=== PATIENT | male | born 1990 | race African-American/Black ===

== ENCOUNTER 2019-07-31 07:15 | Emergency (ER) | payer SELFPAY ==
[~2019-07-31] VITALS: Ht 182.9 cm; Wt 79.5 kg
[2019-07-31 07:22] VITALS: Ht 182.9 cm; Wt 79.5 kg
[2019-07-31 07:50] LABS: BASOPHILS 0.4 % (0-2); HEMOGLOBIN 14.7 g/dL (13.5-17.5); IMMATURE GRANULOCYTES 0.1 % (0-5); LYMPHOCYTES 42.2 % (15-50); MCHC 33.4 g/dL (31.0-37.0); MCV 92.8 fL (80.0-100.0); MEAN PLATELET VOLUME 9.2 fL (7.4-10.4); NEUTROPHILS 43.3 % (40-80); RBC 4.74 10x6/uL (4.20-6.10); WBC 7.5 10x3/uL (4.8-10.8)
[2019-07-31 07:54] LABS: PLATELET COUNT 295 10x3/uL (130-400)
[2019-07-31 08:01] LABS: CALC OSMOLALITY 273 mosm/kg (275-300); CALCIUM 8.5 mg/dL (8.5-10.1); CARBON DIOXIDE 26.5 mmol/L (21.0-32.0); CHLORIDE - SERUM 105 mmol/L (98-107); GLUCOSE 87 mg/dL (74-106); POTASSIUM - SERUM 4.5 mmol/L (3.5-5.1); SODIUM 138 mmol/L (136-145); UREA NITROGEN 11 mg/dL (7-18); eGFR NON AFRICAN AMERICAN > 90 mL/min (90-120)
[2019-07-31 08:07] LABS: ALBUMIN 3.5 g/dL (3.4-5.0); ALKALINE PHOSPHATASE 83 U/L (46-116); ALT (SGPT) 19 U/L (10-68); BILIRUBIN - TOTAL 0.39 mg/dL (0.2-1.3); PROTEIN - SERUM 7.2 g/dL (6.4-8.2)
[2019-07-31 08:34] VITALS: BP 130/80
== END 2019-07-31 08:35 | disposition home or self-care (01) ==
LOC: D.ER 07:15
PROVIDERS: Family Medicine
DX: J45.901 Unspecified asthma with (acute) exacerbation (principal); F17.200 Nicotine dependence, unspecified, uncomplicated

== ENCOUNTER 2019-12-15 08:02 | Emergency (ER) | payer MEDICAID ==
[~2019-12-15] VITALS: Ht 182.9 cm; Wt 88.6 kg
[~2019-12-15 08:02] MED LIST: ALBUTEROL SULF8.5 GM INH
[2019-12-15 08:10] VITALS: Ht 182.9 cm; Wt 88.6 kg
[2019-12-15 08:35] LABS: BASOPHILS 0.3 % (0-2); EOSINOPHILS 4.2 % (0-7); HEMATOCRIT 44.8 % (42.0-54.0); HEMOGLOBIN 14.5 g/dL (13.5-17.5); IMMATURE GRANULOCYTES 0.3 % (0-5); LYMPHOCYTES 26.9 % (15-50); MCH 29.9 pg (26.0-34.0); MCHC 32.4 g/dL (31.0-37.0); MCV 92.4 fL (80.0-100.0); MEAN PLATELET VOLUME 8.8 fL (7.4-10.4); MONOCYTES 10.7 % (2-11); NEUTROPHILS 57.6 % (40-80); PLATELET COUNT 290 10x3/uL (130-400); RBC 4.85 10x6/uL (4.20-6.10); RDW 13.1 % (11.5-14.5); WBC 6.8 10x3/uL (4.8-10.8)
[2019-12-15 08:53] LABS: APTT 26.7 SECONDS (22.8-39.4); INR 0.98 (0.85-1.17)
[2019-12-15 09:01] LABS: CALC OSMOLALITY 270 mosm/kg (275-300); CALCIUM 9.2 mg/dL (8.5-10.1); CARBON DIOXIDE 26.5 mmol/L (21.0-32.0); CHLORIDE - SERUM 103 mmol/L (98-107); CREATININE - SERUM 1.1 mg/dL (0.6-1.3); GLUCOSE 86 mg/dL (74-106); POTASSIUM - SERUM 4.3 mmol/L (3.5-5.1); SODIUM 136 mmol/L (136-145); UREA NITROGEN 13 mg/dL (7-18); eGFR NON AFRICAN AMERICAN 85 mL/min (90-120)
[2019-12-15 09:07] LABS: ALBUMIN 3.7 g/dL (3.4-5.0); ALKALINE PHOSPHATASE 80 U/L (30-120); ALT (SGPT) 27 U/L (10-68); PROTEIN - SERUM 7.4 g/dL (6.4-8.2)
[2019-12-15] MEDS ORDERED: IBUPROFEN800 MG PO (09:11)
[2019-12-15] MEDS ORDERED: CYCLOBENZAPRINE10 MG PO (09:11)
[2019-12-15] MEDS ORDERED: ACETAMINOPHEN500 M1 PO (09:11)
[2019-12-15 10:40] VITALS: BP 138/97
== END 2019-12-15 10:40 | disposition home or self-care (01) ==
LOC: D.ER 08:02
PROVIDERS: Family Medicine
DX: S70.01XA Contusion of right hip, initial encounter (principal); S70.11XA Contusion of right thigh, initial encounter; M54.5 Low back pain; M79.661 Pain in right lower leg; T14.8XXA Other injury of unspecified body region, initial encounter; R10.31 Right lower quadrant pain; J45.909 Unspecified asthma, uncomplicated; W55.12XA Struck by horse, initial encounter; Y93.9 Activity, unspecified; Y92.9 Unspecified place or not applicable